=== PATIENT | female | born 2000 | race Caucasian/White ===

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

== ENCOUNTER 2024-03-18 15:03 | Inpatient (IN) | payer BC, OTHER ==
[~2024-03-18 15:03] MED LIST changes: +DIFLUCAN200 MG PO
[2024-03-18] MEDS ORDERED: CALCIUM CARBONATE 500 MG CHEW PO PRN (17:30)
[2024-03-18] MEDS ORDERED: LACTATED RINGER'S 1,000 ML IV SCH (17:30)
[2024-03-18] MEDS ORDERED: miSOPROStoL 25 MCG TAB PV SCH (17:30)
[2024-03-18] MEDS ORDERED: OXYTOCIN/DEXTROSE 5% 20 UNITS/100 ML BAG IV SCH (17:30)
[2024-03-18] MEDS ORDERED: MAGNESIUM HYDROXIDE/AL HYDROX 30 ML CUP PO PRN (17:30)
[2024-03-18 18:06] LABS: AMPHETAMINES, URINE NEGATIVE (NEGATIVE); BARBITURATES, URINE NEGATIVE (NEGATIVE); BENZODIAZEPINE, URINE NEGATIVE (NEGATIVE); BUPRENORPHINE, URINE NEGATIVE (NEGATIVE); CANNABINOID, URINE NEGATIVE (NEGATIVE); COCAINE, URINE NEGATIVE (NEGATIVE); ECSTASY, URINE NEGATIVE (NEGATIVE); FENTANYL, URINE NEGATIVE (NEGATIVE); METHADONE, URINE NEGATIVE (NEGATIVE); OPIATES, URINE NEGATIVE (NEGATIVE); OXYCODONE, URINE NEGATIVE (NEGATIVE); PHENCYCLIDINE, URINE NEGATIVE (NEGATIVE)
[2024-03-18 18:30] VITALS: BP 116/72
[2024-03-18 18:39] LABS: ABO O; ANTIBODY SCREEN NEGATIVE; RH POSITIVE
[2024-03-19] MEDS ORDERED: LABETALOL HCL 100 MG/20 ML MDV ONE (04:01)
[2024-03-19] MEDS ORDERED: hydrALAZINE HCL 20 MG/ML VIAL IV PRN (04:15)
[2024-03-19] MEDS ORDERED: LABETALOL HCL 100 MG/20 ML MDV IV PRN ×3 (04:15)
[2024-03-19 13:11] LABS: CREATININE, RANDOM URINE 88.26 mg/dL (NOT ESTABLISHED); PROTEIN/CREATININE RATIO 1.28 mg/mg (0.010-0.107)
[2024-03-19 13:12] LABS: HEMATOCRIT 29.6 % (35.0-50.0); HEMOGLOBIN 9.8 g/dL (12.0-18.0); MCH 28.7 (27-36); MCHC 33.2 g/dl (30-36); MCV 86.4 fl (81-99); RBC 3.42 M/ul (4.3-5.7); RDW 14.4 (10.5-15.0)
[2024-03-19 13:23] LABS: CREATININE, SERUM 0.69 mg/dL (0.55-1.02)
[2024-03-19] MEDS ORDERED: miSOPROStoL 25 MCG TAB ONE (13:23)
[2024-03-19] MEDS ORDERED: OXYTOCIN/0.9 % SODIUM CHLORIDE 500 ML IV SCH (17:45)
[2024-03-20] MEDS ORDERED: fentaNYL citrate 100 MCG/2 ML VIAL IV ONE (07:15)
[2024-03-20 08:07] LABS: HEMOGLOBIN 9.7 g/dL (12.0-18.0); MCH 28.5 (27-36); MCHC 33.6 g/dl (30-36); MCV 84.9 fl (81-99); RBC 3.42 M/ul (4.3-5.7); RDW 14.1 (10.5-15.0)
[2024-03-20] MEDS ORDERED: LIDOCAINE HCL 2% 5 ML SDV ONE (08:09)
[2024-03-20] MEDS ORDERED: BUPIVACAINE HCL 0.25% 10 ML SDV INJ ONE (08:09)
[2024-03-20] MEDS ORDERED: dexmedeTOMIDine HCl 200 MCG/2 ML VIAL ONE (08:09)
[2024-03-20] MEDS ORDERED: ROPIVACAINE 0.2% 200 ML BAG ONE (08:09)
[2024-03-20 08:26] LABS: CREATININE, SERUM 0.61 mg/dL (0.55-1.02)
[2024-03-20] MEDS ORDERED: LACTATED RINGER'S 500 ML IV PRN (08:45)
[2024-03-20] MEDS ORDERED: LACTATED RINGER'S 2,000 ML IV ONE (08:45)
[2024-03-20] MEDS ORDERED: ePHEDrine sulfate 5 MG/ML SYRINGE IV PRN (08:45)
[2024-03-20] MEDS ORDERED: ROPIVACAINE 0.2% 200 ML BAG EPIDURAL SCH ×2 (08:45)
[2024-03-20 10:00] LABS: CREATININE, RANDOM URINE 80.19 mg/dL (NOT ESTABLISHED); PROTEIN/CREATININE RATIO 1.97 mg/mg (0.010-0.107)
[2024-03-20] MEDS ORDERED: TRANEXAMIC ACID IN NACL,ISO-OS 0 ML IV ONE (12:27)
[2024-03-20] MEDS ORDERED: OXYTOCIN/DEXTROSE 5% 20 UNITS/100 ML BAG IV SCH (15:45)
[2024-03-20] MEDS ORDERED: CALCIUM CARBONATE 500 MG CHEW PO PRN (16:00)
[2024-03-20] MEDS ORDERED: MAGNESIUM HYDROXIDE/AL HYDROX 30 ML CUP PO PRN (16:00)
[2024-03-20] MEDS ORDERED: HYDROCORTISONE ACETATE 25 MG SUPP PR PRN (16:00)
[2024-03-20] MEDS ORDERED: OXYCODONE HCL 5 MG TAB PO PRN (16:00)
[2024-03-20] MEDS ORDERED: LIDOCAINE 2% VISCOUS 6 ML SYR TOP ONE ×2 (16:00)
[2024-03-20] MEDS ORDERED: HYDROCODONE/ACETA 5/325 TAB PO PRN (16:00)
[2024-03-20] MEDS ORDERED: MAGNESIUM HYDROXIDE 30 ML UDC PO PRN (16:00)
[2024-03-20] MEDS ORDERED: OXYCODONE/APAP 5/325 TAB PO PRN (16:00)
[2024-03-20] MEDS ORDERED: ACETAMINOPHEN 325 MG TAB PO PRN (16:00)
[2024-03-20] MEDS ORDERED: OXYTOCIN/0.9 % SODIUM CHLORIDE 500 ML IV SCH (16:00)
[2024-03-20] MEDS ORDERED: BENZOCAINE 60 ML AEROSOL TOP PRN (16:00)
[2024-03-20] MEDS ORDERED: IBUPROFEN 600 MG TAB PO PRN (16:00)
[2024-03-20] MEDS ORDERED: WITCH HAZEL/GLYCERIN 1 EA PAD TOP PRN (16:00)
[2024-03-20] MEDS ORDERED: SENNOSIDES/DOCUSATE 1 EA TAB PO SCH (21:00)
[2024-03-21 06:25] LABS: HEMATOCRIT 26.3 % (35.0-50.0); HEMOGLOBIN 8.9 g/dL (12.0-18.0); MCH 28.5 (27-36); MCHC 33.7 g/dl (30-36); MCV 84.7 fl (81-99); RBC 3.11 M/ul (4.3-5.7); RDW 14.2 (10.5-15.0)
[2024-03-21 06:37] LABS: CREATININE, SERUM 0.72 mg/dL (0.55-1.02)
[2024-03-21 10:48] LABS: CREATININE, RANDOM URINE 90.66 mg/dL (NOT ESTABLISHED); PROTEIN/CREATININE RATIO 0.82 mg/mg (0.010-0.107)
[2024-03-21] MEDS ORDERED: LABETALOL HCL 100 MG TAB PO SCH (13:21)
[2024-03-21 13:38] VITALS: BP 140/94
== END 2024-03-21 18:30 | disposition home or self-care (01) | DRG 807 ==
LOC: LAB 15:03 → FBCO 15:03 → FBC 17:45
PROVIDERS: Obstetrics & Gynecology; ADMIT Obstetrics & Gynecology; ATTEND Obstetrics & Gynecology
PROC: 3E033VJ Introduction of Other Hormone into Peripheral Vein, Percutaneous Approach (ICD-10-PCS; 2024-03-18)
PROC: 10E0XZZ Delivery of Products of Conception, External Approach (ICD-10-PCS; principal; 2024-03-20)
PROC: 0KQM0ZZ Repair Perineum Muscle, Open Approach (ICD-10-PCS; 2024-03-20)
PROC: 10907ZC Drainage of Amniotic Fluid, Therapeutic from Products of Conception, Via Natural or Artificial Opening (ICD-10-PCS; 2024-03-20)
DX: O11.4 Pre-existing hypertension with pre-eclampsia, complicating childbirth (principal); Z37.0 Single live birth; Z3A.38 38 weeks gestation of pregnancy; O70.1 Second degree perineal laceration during delivery; Z88.0 Allergy status to penicillin; O99.334 Smoking (tobacco) complicating childbirth; F17.290 Nicotine dependence, other tobacco product, uncomplicated; O99.324 Drug use complicating childbirth; F12.90 Cannabis use, unspecified, uncomplicated
CPT/HCPCS: 01960; 36415; 80307; 82565; 82570; 84156; 84450; 84520; 84550; 85027; 86850; 86900; 86901; A9270; G0463; J2001; J2590; J2795; J3010; J7121

== ENCOUNTER 2024-03-27 05:47 | Emergency (ER) | payer BC, OTHER ==
[~2024-03-27] VITALS: Ht 172.7 cm; Wt 97.7 kg
[2024-03-27] MEDS ORDERED: LABETALOL HCL200 MG (05:58)
[2024-03-27 06:37] LABS: BASOPHILS 0.7 % (0-2); EOSINOPHILS 2.8 % (0-6); HEMATOCRIT 30.2 % (35.0-50.0); HEMOGLOBIN 9.7 g/dL (12.0-18.0); LYMPHOCYTES 25.5 % (24-44); MCH 27.6 (27-36); MCHC 32.3 g/dl (30-36); MCV 85.4 fl (81-99); MONOCYTES 4.5 % (0-12); NEUTROPHILS 66.5 % (39-80); PLATELET COUNT 454 K/uL (140-440); RBC 3.53 M/ul (4.3-5.7); RDW 14.8 (10.5-15.0)
[2024-03-27 06:52] LABS: ALBUMIN 2.6 g/dL (3.4-5.0); ALBUMIN/GLOBULIN RATIO 0.6 (1.1-2.4); ANION GAP 14.7 (7-21); BILIRUBIN, TOTAL 0.2 ng/dL (0.2-1.0); BUN/CREATININE RATIO 15.94 (6.0-28.6); CREATININE, SERUM 0.69 mg/dL (0.55-1.02); POTASSIUM 3.7 mmol/L (3.5-5.1); PROTEIN, TOTAL 6.9 g/dL (6.4-8.2)
[2024-03-27 07:10] LABS: ABO O; ANTIBODY SCREEN NEGATIVE; RH POSITIVE
[2024-03-27 07:36] LABS: BILIRUBIN, URINE NEGATIVE (negative); BLOOD/HGB, URINE LARGE (Negative); KETONE, URINE NEGATIVE (Negative); LEUK ESTERASE, URINE SMALL (negative); NITRITE, URINE NEGATIVE (negative)
[2024-03-27 07:53] LABS: CRYSTALS, URINE NONE SEEN (0-1+); RED BLOOD CELLS, URINE >50 /hpf (0-5); WHITE BLOOD CELLS, URINE 21-40 /HPF (0-5)
[2024-03-27 07:54] LABS: BACTERIA, URINE NONE SEEN /hpf (negative); CASTS, URINE NONE SEEN \\lpf; COLLECTION TYPE, URINE CLEAN CATCH; REFLEX CULTURE, URINE Yes (No)
[2024-03-27 07:59] VITALS: BP 130/80
== END 2024-03-27 07:59 | disposition home or self-care (01) ==
LOC: ED 05:47
PROVIDERS: Family Medicine
DX: Z39.2 Encounter for routine postpartum follow-up (principal); I10 Essential (primary) hypertension; F17.200 Nicotine dependence, unspecified, uncomplicated; Z88.0 Allergy status to penicillin; Z79.899 Other long term (current) drug therapy
CPT/HCPCS: 36415; 80053; 81001; 83615; 85025; 86850; 86900; 86901; 87088; 99283

== ENCOUNTER 2024-06-24 21:19 | Emergency (ER) | payer OTHER, BC ==
[~2024-06-24] VITALS: Ht 172.7 cm; Wt 96.0 kg
[~2024-06-24 21:19] MED LIST changes: +LABETALOL HCL200 MG
[2024-06-24] MEDS ORDERED: NORETHINDRONE0.35 MG PO (22:12)
[2024-06-24] MEDS ORDERED: CYCLOBENZAPRINE10 MG PO (23:08)
[2024-06-24] MEDS ORDERED: CYCLOBENZAPRINE HCL 10 MG HOME.PACK PO ONE (23:15)
[2024-06-24 23:22] VITALS: BP 149/63
== END 2024-06-24 23:23 | disposition home or self-care (01) ==
LOC: ED 21:19
DX: S70.02XA Contusion of left hip, initial encounter (principal); S20.212A Contusion of left front wall of thorax, initial encounter; S63.616A Unspecified sprain of right little finger, initial encounter; W10.9XXA Fall (on) (from) unspecified stairs and steps, initial encounter; I10 Essential (primary) hypertension; F17.200 Nicotine dependence, unspecified, uncomplicated; Z88.0 Allergy status to penicillin; Z79.899 Other long term (current) drug therapy
CPT/HCPCS: 71101; 73140; 73502; 84703; 99283